=== PATIENT | male | born 1985 | race African-American/Black ===

== ENCOUNTER 2017-06-04 03:29 | Emergency (ER) | payer OTHER ==
[~2017-06-04] VITALS: Ht 160 cm; Wt 73.9 kg
[2017-06-04 03:52] VITALS: BP_SYST 127
--- NOTE | 2017-06-04 04:08 | NUR ---
Patient to ER bed 3 to gown for evaluation. Side rails up. Report given to PHILLY BECKER.
--- NOTE | 2017-06-04 04:10 | NUR ---
Patient arrived to ED a/o x 4 with c/o laceration to right third finger. Patient reports injuring site x 2 days ago. States it continues to bleed as he bends it. No active bleeding at this time. CMS present distal to extremity. Will continue to monitor.
--- NOTE | 2017-06-04 04:17 | NUR ---
ED MD Han at bedside for medical evaluation.
[2017-06-04] MEDS ORDERED: BACITRACIN 1 GM OINT TP ONE (04:30)
[2017-06-04 04:50] VITALS: BP_SYST 129
--- NOTE | 2017-06-04 04:50 | NUR ---
Patient given written and verbal discharge instructions and verbalizes understanding. ER MD discussed with patient the results and treatment provided. Patient in stable condition. ID arm band removed. Rx of Motrin given. Patient educated on pain management and to follow up with PMD. Pain Scale 2/10 at this time. Opportunity for questions provided and answered.
== END 2017-06-04 04:50 | disposition home or self-care (01) ==
LOC: SED 03:29
DX: S61.213A Laceration without foreign body of left middle finger without damage to nail, initial encounter (principal); F17.200 Nicotine dependence, unspecified, uncomplicated; X58.XXXA Exposure to other specified factors, initial encounter; Y93.89 Activity, other specified; Y92.89 Other specified places as the place of occurrence of the external cause; Y99.8 Other external cause status
CPT/HCPCS: 99283

== ENCOUNTER 2018-11-24 16:05 | Emergency (ER) | payer MEDICAID, OTHER ==
[~2018-11-24] VITALS: Ht 160 cm; Wt 68.0 kg
--- NOTE | 2018-11-24 16:05 | NUR ---
Patient to ER bed 05 to gown for evaluation. Side rails up. Report given to Anette FRAGA.
[2018-11-24 16:12] VITALS: BP_SYST 126
--- NOTE | 2018-11-24 16:20 | NUR ---
Patient presented to the ED with police escorts. Chief complaints of right arm pain, left rib pain, and right lower leg pain today. [address] officer, patient was tackled to the ground by bystanders when attempting to run away after shoplifting at [employer] earlier this afternoon. There are no other complaints at this time and the patient is otherwise in good health. Will continue to follow up and monitor.
--- NOTE | 2018-11-24 16:30 | NUR ---
ER at bedside examining patient.
--- NOTE | 2018-11-24 16:57 | NUR ---
Renetta Covarrubias called to see if patient was here, received permission from patient to talk to let her know he is here.
[2018-11-24 17:40] VITALS: BP_SYST 120
--- NOTE | 2018-11-24 17:40 | NUR ---
Patient given written and verbal discharge instructions and verbalizes understanding. ER MD discussed with patient the results and treatment provided. Patient in stable condition. ID arm band removed. No RX given. Patient educated on pain management and to follow up with PMD. Pain Scale 0. Opportunity for questions provided and answered. Medication side effect fact sheet provided. Patient left ER in no acute distress, able to ambulate without difficulty with slow, steady gait. Patient remains in custody of [employer]. Patient left ER in handcuffs with no trauma or injury noted.
== END 2018-11-24 17:40 ==
LOC: SED 16:05
DX: M79.601 Pain in right arm (principal); M79.661 Pain in right lower leg; R07.81 Pleurodynia
CPT/HCPCS: 71100; 73060-TC; 73590-TC; 99283